=== PATIENT | female | born 1990 | race Caucasian/White ===

== ENCOUNTER 2016-05-13 15:21 | Inpatient (IN) | payer OTHER ==
[2016-05-13] VITALS (8 sets, daily range): BP systolic 88–122; BP diastolic 42–75
[~2016-05-13] VITALS: Ht 160 cm; Wt 70.0 kg
[~2016-05-13 15:21] MED LIST: PRENTAB9 PO
[2016-05-13] MEDS ORDERED: miSOPROStol 50 MCG 1/2 TAB (S0191) As Ordered ONE (16:05)
[2016-05-13] MEDS ORDERED: PENICILLIN G POTASSIUM IV 5 MU in D5W MINI-BAG PLUS 100 ML IV STA (16:12)
[2016-05-13] MEDS ORDERED: miSOPROStol 50 MCG 1/2 TAB (S0191) PO ONE (16:15)
[2016-05-13 16:34] LABS: MEAN CORPUSCULAR VOLUME 81.7 fl (80.0-96.0); RED CELL DISTRIBUTION WIDTH 15.1 % (11.5-14.5); WHITE BLOOD COUNT 8.6 K/mm3 (4.0-10.0)
--- NOTE | 2016-05-13 16:57 | HPE ---
DATE OF ADMISSION: 05/13/2016 Mary Beth is a 25-year-old 1, para 0 at 40-3/7 weeks gestation with an estimated date of confinement (EDC) of 05/10/2016 based on first-trimester ultrasound. She presents to labor and delivery today for induction of labor due to post-term per her request. care was initiated at [facility] in the first trimester. course complicated by rubella equivocal status, group B streptococcus (GBS) positive status. OBSTETRICAL HISTORY: Primigravida. OBSTETRICAL LABORATORIES: Blood type O positive, antibody screen negative. Pap: ASUCS. Positive HPV. Rubella equivocal. VDRL nonreactive. Urine culture: No growth. Hepatitis B surface antigen negative, HIV negative. Hepatitis C antibody negative. Gonorrhea and chlamydia negative. She did decline all genetic serum screening markers. Gestational diabetic screening 82, and GBS is positive. PAST MEDICAL HISTORY: 1. Childhood varicella. 2. Left breast biopsy in 2014. SURGERIES/PROCEDURES: Left breast biopsy. FAMILY HISTORY: Hypertension. SOCIAL HISTORY: The patient is single. The father of the baby is at bedside and supportive. She is a nonsmoker. Denies alcohol and drug use. Positive human papillomavirus (HPV). Denies history of abuse, physical, sexual, and emotional. ALLERGIES: KEFLEX. Report facial swelling. She does report that she has taken amoxicillin in the past and has had no reaction to it. MEDICATIONS: - Zantac 150 mg by mouth as needed - Proctosol for hemorrhoids as needed OBJECTIVE: Temperature 98.4, pulse 103, respirations 18, blood pressure 122/75. heart rate is 145 with moderate variability. Positive accelerations. No decelerations noted. There is an occasional contraction on the monitor. Vaginal exam: 3 cm dilated, 75% effaced, -2 station. Membranes are intact. Scant bloody show with exam. Abdomen is gravid, cephalic presentation. Estimated weight 7 pounds 5 ounces. ASSESSMENT: Intrauterine at 40-3/7 weeks. heart rate category 1. PLAN: Admit the patient to labor and delivery. Saline lock. Start IV antibiotics for GBS prophylaxis once in active labor. Labs as ordered. I did review the risks of induction of labor, including failed induction, intolerance to labor, increased risk of section. The patient and I had a long discussion regarding her very involved plan and reviewed options for pain management. May be unable to avoid at hydrotherapy with use of IV Pitocin. I did answer all the patient's questions and her partner's questions, and they do still desire to proceed with induction of labor at this time. I will insert Morales bulb with 40 mL of normal saline for cervical ripening as well as misoprostol 50 mcg by mouth. I will reassess cervical exam in approximately 4 hours. I do anticipate starting IV Pitocin once the Morales bulb is out and did discuss assisted rupture of membranes for labor augmentation when she is in active labor.
[2016-05-13] MEDS ORDERED: LR 1,000 ML IV SCH (20:21)
[2016-05-13] MEDS ORDERED: OXYTOCIN 30 UNITS IN 0.9% NaCl 500ML IV BAG (J2590) As Ordered ONE (20:22)
[2016-05-13] MEDS ORDERED: OXYTOCIN DRIP 30 UNITS in APPROPRIATE DILUENT 1 EA IV SCH (20:30)
[2016-05-14] VITALS (21 sets, daily range): BP systolic 84–128; BP diastolic 53–87
[2016-05-14] MEDS: PENICILLIN G POTASSIUM IV 2.5 MU in D5W 100 ML IV SCH ×2 (00:30→04:31)
[2016-05-14] MEDS ORDERED: REFRIGERATOR IV KEYS XX PRN (01:40)
[2016-05-14] MEDS ORDERED: EPIDURAL COMMENT XX SCH (01:40)
[2016-05-14] MEDS ORDERED: diphenhydrAMINE INJ 50MG/ML VIAL (J1200) IV PRN (01:40)
[2016-05-14] MEDS ORDERED: ePHEDrine SULFATE 25 MG/5 ML(5MG/ML) SYRINGE IV PRN (01:40)
[2016-05-14] MEDS ORDERED: LACTATED RINGER'S 1000 ML IV PRN (01:40)
[2016-05-14] MEDS ORDERED: ONDANSETRON 4MG/2ML VIAL (J2405) IV PRN ×2 (01:40→10:15)
[2016-05-14] MEDS ORDERED: EPIDURAL/PCA KEYS XX PRN (01:40)
[2016-05-14] MEDS ORDERED: FENTANYL/ROPIVACAINE/NACL CADD 250 ML EPIDURAL SCH (01:40)
[2016-05-14] MEDS ORDERED: NALOXONE INJ 0.4 MG/1 ML VIAL (J2310) IV PRN (01:40)
[2016-05-14 08:49] LABS: CORD GAS ABE A -8.9; CORD GAS ABE V -10.2; CORD GAS HCO3 A 20.5 MEQ/L; CORD GAS HCO3 V 16.8 MEQ/L; CORD GAS O2 SAT A 61.4 %; CORD GAS O2 SAT V 39.7 %; CORD GAS PCO2 A 58.7 mmHg; CORD GAS PCO2 V 40.8 mmHg; CORD GAS PH A 7.16 UNITS; CORD GAS PH V 7.232 UNITS; CORD GAS PO2 A 31.9 mmHg; CORD GAS PO2 V 21.9 mmHg; CORD GAS SBC A 16.7 MEQ/L; CORD GAS SBC V 15.3 MEQ/L; CORD GAS TCO2 A 22.3 MEQ/L
[2016-05-14] MEDS ORDERED: OXYTOCIN DRIP 30 UNITS in APPROPRIATE DILUENT 1 EA IV SCH (09:04)
[2016-05-14] MEDS ORDERED: RHOGAM 300 MCG (1500 IU) INJ (J2790) IM SCH (09:15)
[2016-05-14] MEDS ORDERED: DOCUSATE SODIUM 100 MG CAP PO PRN (09:15)
[2016-05-14] MEDS ORDERED: DIBUCAINE 1% OINTMENT 30GM TOP PRN (09:15)
[2016-05-14] MEDS ORDERED: ACETAMINOPHEN 500 MG TAB PO PRN (09:15)
[2016-05-14] MEDS ORDERED: METHYLERGONOVINE MALEATE 0.2 MG TAB PO PRN (09:15)
[2016-05-14] MEDS ORDERED: MEASLES,MUMPS,RUBELLA VACCINE INJ (MMR-II) (90707) SC SCH (09:15)
[2016-05-14] MEDS ORDERED: METHYLERGONOVINE MALEATE 0.2 MG/ML VIAL (J2210) IM ONE (09:30)
--- NOTE | 2016-05-14 09:35 | DN ---
DATE: 05/14/2016 Mary Beth is a 25-year-old 1, para 1-0-0-1 now, who is admitted to labor and delivery for induction of labor due to post dates . Misoprostol and intravenous (IV) Pitocin was utilized. Labor did ensue. She did utilize an epidural for her labor coping. She progressed to full dilation at 0803 hours and she pushed to a normal spontaneous vaginal delivery of a live male infant in left occiput anterior (PENNY) position with restitution to left occiput transverse (LOT) position at 0836 hours. There was no nuchal cord. The shoulders delivered spontaneously and the corpus immediately followed. The was placed on maternal abdomen crying and active. The cord was clamped times two and cut by the father of the baby. A spontaneous expulsion of an intact placenta with three-vessel cord by Sargent mechanism was at 0846 hours. Uterine hemostasis was achieved with IV Pitocin rapid infusion, Methergine intramuscular (IM) and uterine fundal massage. Estimated blood loss 400 mL. Perineum and vagina were inspected, noted to be intact. male weighed 4040 grams (8 pounds 15 ounces). 9 and 10. Family has named their son Jace. Mom is breast-feeding at this time. At the close of delivery, lap counts, instrument counts and needle counts were correct and verified.
[2016-05-14] MEDS ORDERED: ONDANSETRON 4MG/2ML VIAL (J2405) As Ordered ONE (10:05)
[2016-05-14] MEDS: IBUPROFEN 800 MG TAB PO PRN (11:20)
[2016-05-15] MEDS: IBUPROFEN 800 MG TAB PO PRN ×3 (00:02→20:59)
[2016-05-15 06:33] VITALS: BP 106/60
[2016-05-15] MEDS: PRENATAL VITAMIN TAB PO SCH (09:07)
[2016-05-15 17:56] VITALS: BP 101/55
[2016-05-16 05:45] VITALS: BP 109/61
[2016-05-16] MEDS: IBUPROFEN 800 MG TAB PO PRN (05:53)
[2016-05-16] MEDS: PRENATAL VITAMIN TAB PO SCH (08:06)
[2016-05-16] MEDS ORDERED: IBUP-1114 PO (08:16)
[2016-05-16] MEDS ORDERED: ACET50TA PO (08:16)
== END 2016-05-16 10:30 | disposition home or self-care (01) | DRG 560 ==
LOC: M LDI 15:21 → M OBS 05-14 11:19
PROVIDERS: ADMIT Advanced Practice Midwife; ATTEND Advanced Practice Midwife
PROC: 3E033VJ Introduction of Other Hormone into Peripheral Vein, Percutaneous Approach (ICD-10-PCS; 2016-05-13)
PROC: 10E0XZZ Delivery of Products of Conception, External Approach (ICD-10-PCS; principal; 2016-05-14)
PROC: 10907ZC Drainage of Amniotic Fluid, Therapeutic from Products of Conception, Via Natural or Artificial Opening (ICD-10-PCS; 2016-05-14)
DX: O48.0 Post-term pregnancy (principal); O99.824 Streptococcus B carrier state complicating childbirth; Z3A.40 40 weeks gestation of pregnancy; Z37.0 Single live birth

== ENCOUNTER → 2017-02-02 | Outpatient (REF) | payer OTHER, SELFPAY ==
[~2017-02-02] MED LIST changes: +ACET50TA PO; +IBUP-1114 PO
[2017-02-02 20:59] LABS: BASO % 0.3 % (0.0-1.0); EOS # 0.2 K/mm3 (0.0-0.50); EOS % 3.6 % (0.0-3.0); LARGE UNSTAINED CELL # 0.1 K/mm3 (0.0-0.4); LARGE UNSTAINED CELL % 1.9 % (0.0-4.0); LYMPH # 1.5 K/mm3 (1.5-6.5); LYMPH % 25.1 % (24.0-44.0); MEAN CORPUSCULAR HEMOGLOBIN 28.7 pg (27.0-33.0); MEAN CORPUSCULAR HGB CONC 33.8 g/dl (32.0-36.5); MEAN CORPUSCULAR VOLUME 85.1 fl (80.0-96.0); MONO # 0.4 K/mm3 (0.0-0.8); MONO % 6.1 % (0.0-5.0); NEUTROPHILS # 3.7 K/mm3 (1.8-7.7); NEUTROPHILS % 63.1 % (36.0-66.0); PLATELET COUNT, AUTOMATED 322 k/mm3 (150-450); RED CELL DISTRIBUTION WIDTH 13.7 % (11.5-14.5); WHITE BLOOD COUNT 5.8 K/mm3 (4.0-10.0)
[2017-02-03 07:35] LABS: HBsAg Prenatal NEGATIVE (NEGATIVE)
== END ==
LOC: M LABDRWCV 17:11
PROVIDERS: ATTEND Advanced Practice Midwife
DX: Z36 Encounter for antenatal screening of mother (principal)

== ENCOUNTER → 2017-04-26 | Outpatient (CLI) | payer OTHER ==
--- NOTE | 2017-04-26 14:45 | REP ---
OB ULTRASOUND: Real-time sonographic evaluation of the gravid uterus performed. There is a single living intrauterine gestation. Estimated gestational age 18 weeks 4 days. EDC 09/23/2017. Today's measurements indicate appropriate growth. BPD 42 mm = 18 weeks 6 days, 55th percentile HC 157 mm = 18 weeks 4 days, 50th percentile AC 140 mm = 19 weeks 3 days, 67th percentile Femur length 29 mm = 18 weeks 5 days, 54th percentile HC/AC ratio 1.12 within normal range. Estimated weight 270 grams, 63rd percentile. Cervix is closed and measures 5.3 cm in length. heart rate 153 beats per minute. SEEN/GROSSLY UNREMARKABLE Lateral ventricles Yes Posterior fossa Yes Upper lip Yes Four-chamber heart Yes LVOT Yes RVOT Yes Stomach Yes Cord insertion Yes Three vessel cord Yes Kidneys Yes Bladder Yes Spine Yes position: Variable. Placenta: Fundal and grade 0 with no previa or abruption. Amniotic fluid: Within normal limits. Signed by Chun Christianson MD 04/27/2017 09:15 A
== END ==
LOC: M RAD 12:16
PROVIDERS: ATTEND Advanced Practice Midwife
DX: Z34.82 Encounter for supervision of other normal pregnancy, second trimester (principal)

== ENCOUNTER → 2017-06-29 | Outpatient (CLI) | payer OTHER ==
[2017-06-29 17:48] LABS: HEMATOCRIT 31.2 % (36.0-47.0); MEAN CORPUSCULAR HEMOGLOBIN 28.2 pg (27.0-33.0); MEAN CORPUSCULAR HGB CONC 32.1 g/dl (32.0-36.5); MEAN CORPUSCULAR VOLUME 87.9 fl (80.0-96.0); PLATELET COUNT, AUTOMATED 276 10^3/uL (150-450); RED BLOOD COUNT 3.55 10^6/uL (4.00-5.40); RED CELL DISTRIBUTION WIDTH 13.8 % (11.5-14.5)
[2017-06-29 18:34] LABS: GLUCOSE CHALLENGE TEST 1 HOUR 102 MG/DL (LESS THAN 140)
== END ==
LOC: M SMT 14:08
DX: Z36.89 Encounter for other specified antenatal screening (principal); Z3A.00 Weeks of gestation of pregnancy not specified
CPT/HCPCS: 82950

== ENCOUNTER → 2017-08-25 | Outpatient (REF) | payer OTHER | LOC: M LAB REF 17:12 | DX: Z34.83 Encounter for supervision of other normal pregnancy, third trimester (principal) | CPT/HCPCS: 87081 ==

== ENCOUNTER 2017-10-03 06:21 | Inpatient (IN) | payer OTHER ==
[2017-10-03] MEDS ORDERED: OXYTOCIN 30 UNITS IN 0.9% NaCl 500ML IV BAG (J2590) As Ordered (07:12)
[2017-10-03] MEDS ORDERED: MEASLES,MUMPS,RUBELLA VACCINE INJ (MMR-II) (90707) SC (09:45)
[2017-10-03] MEDS ORDERED: METHYLERGONOVINE MALEATE 0.2 MG TAB PO (09:45)
[2017-10-03] MEDS ORDERED: ANUSOL HC CREAM 30GM TOP (09:45)
[2017-10-03] MEDS ORDERED: ACETAMINOPHEN 500 MG TAB PO (09:45)
[2017-10-03] MEDS ORDERED: DOCUSATE SODIUM 100 MG CAP PO (09:45)
[2017-10-03] MEDS: OXYTOCIN INJ 10 UNITS/ML VIAL (J2590) IM (09:45)
[2017-10-03] MEDS ORDERED: RHOGAM 300 MCG (1500 IU) INJ (J2790) IM (09:45)
[2017-10-03] MEDS ORDERED: DIBUCAINE 1% OINTMENT 30GM TOP (09:45)
[2017-10-03] MEDS ORDERED: ONDANSETRON 4MG/2ML VIAL (J2405) IV (09:45)
[2017-10-03] MEDS ORDERED: IBUPROFEN 800 MG TAB PO (09:45)
[2017-10-04] MEDS: PRENATAL VITAMINS CHEWABLE TABLET PO (08:20)
== END 2017-10-04 17:00 | disposition home or self-care (01) | DRG 560 ==
LOC: M LDO 06:21 → M LDI 06:32 → M OBS 12:10
PROVIDERS: Advanced Practice Midwife
PROC: 10E0XZZ Delivery of Products of Conception, External Approach (ICD-10-PCS; principal; 2017-10-03)
DX: O48.0 Post-term pregnancy (principal); Z88.0 Allergy status to penicillin; Z37.0 Single live birth; Z3A.41 41 weeks gestation of pregnancy

== ENCOUNTER → 2018-09-11 | Outpatient (CLI) | payer OTHER, MEDICAID ==
[~2018-09-11] MED LIST changes: -ACET50TA PO; +MAPA500T2 PO
[2018-09-12 13:22] LABS: HEPATITIS A ANTIBODY IGM NEGATIVE (NEGATIVE); HEPATITIS B CORE ANTIBODY IGM NEGATIVE (NEGATIVE); HEPATITIS B SURFACE ANTIGEN NEGATIVE (NEGATIVE); HIV 1&2 SCREEN CENTAUR NEGATIVE (NEGATIVE)
== END ==
LOC: M SMT 10:35
PROVIDERS: ATTEND Advanced Practice Midwife
DX: Z11.3 Encounter for screening for infections with a predominantly sexual mode of transmission (principal)

== ENCOUNTER → 2018-09-11 | Outpatient (REF) | payer OTHER, MEDICAID | LOC: M LAB REF 10:33 | PROVIDERS: ATTEND Advanced Practice Midwife | DX: Z12.4 Encounter for screening for malignant neoplasm of cervix (principal) ==

== ENCOUNTER → 2018-09-12 | Outpatient (REF) | payer OTHER, MEDICAID ==
[2018-09-12 15:52] LABS: CHLAMYDIA DNA AMPLIFICATION NEGATIVE (NEGATIVE); GC DNA AMPLIFICATION NEGATIVE (NEGATIVE)
== END ==
LOC: M LAB REF 12:42
PROVIDERS: ATTEND Advanced Practice Midwife
DX: Z12.4 Encounter for screening for malignant neoplasm of cervix (principal)

== ENCOUNTER → 2019-02-04 | Outpatient (REF) | payer OTHER | LOC: M SFHCCAPE 10:50 | PROVIDERS: ATTEND Physician Assistant | DX: J02.9 Acute pharyngitis, unspecified (principal) ==

== ENCOUNTER → 2024-06-19 | Outpatient (CLI) | payer OTHER | LOC: M SLEEP HO 10:58 | PROVIDERS: ATTEND Internal Medicine Pulmonary Disease | DX: R06.83 Snoring (principal) ==